=== PATIENT | female | born 2005 | race Caucasian/White ===

== ENCOUNTER 2023-06-19 06:30 | Day surgery (SDC) | payer OTHER ==
--- NOTE | 2023-06-13 14:03 | HP ---
DATE OF SURGERY: 06/19/2023 HISTORY OF PRESENT ILLNESS: The patient is a 18-year-old female who presents with complaints of enlarged tonsils. The patient has had four episodes of tonsillitis in this past year. She was actually down in [place] and had a couple episodes and had to report to a [facility] down there. The patient desires a surgical intervention for her chronic tonsillitis. PAST MEDICAL HISTORY: Depression. Tonsillitis. PAST SURGICAL HISTORY: [place] teeth. ALLERGIES: NKDA. MEDICATIONS: Celexa. Loestrin. FAMILY HISTORY: Unreported. SOCIAL HISTORY: Occasional alcohol. REVIEW OF SYSTEMS: CONSTITUTIONAL: Denies fever or chills. CHEST: Denies shortness of breath. CVS: Denies chest pain. ABDOMEN: Denies abdominal pain. PHYSICAL EXAMINATION: GENERAL: No acute distress. HEENT: She has bilaterally enlarged tonsils. CHEST: Regular rate and rhythm. CVS: Regular rate and rhythm. ABDOMEN: Soft. IMPRESSION: Chronic tonsillitis with bilaterally enlarged tonsils. PLAN: Outpatient T&A with Dr. Van Gray. As dictated by Sonia Call NP.
[2023-06-19] MEDS ORDERED: [UNRECOGNIZED DRUG - OTHER] TP ONE (06:31)
[2023-06-19 06:45] LABS: HCG URINE TEST NEGATIVE (NEGATIVE)
[2023-06-19] MEDS ORDERED: Lactated Ringers 1,000 ML IV SCH (07:00)
[2023-06-19 07:17] VITALS: RESP 18
[2023-06-19] MEDS ORDERED: SUBLIMAZE 100 MCG/2 ML ONE ×3 (07:17→11:21)
[2023-06-19] MEDS ORDERED: Xylocaine-Mpf 2% 5 Ml Vial ONE (07:17)
[2023-06-19] MEDS ORDERED: Decadron 4 MG INJ ONE (07:17)
[2023-06-19] MEDS ORDERED: Zofran 4 MG/2 ML VIAL ONE (07:17)
[2023-06-19] MEDS ORDERED: DIPRIVAN 200 MG/20 ML IV ONE (07:17)
[2023-06-19] MEDS ORDERED: Versed 2 MG/2 ML Injection ONE (07:17)
[2023-06-19] MEDS ORDERED: MEFOXIN 2 GM PREMIX** 2 GM/50 ML ML IV ONE (07:56)
[2023-06-19] MEDS ORDERED: MEFOXIN 2 GM PREMIX** 2 GM/50 ML ML IV SCH (08:00)
[2023-06-19] MEDS ORDERED: Zemuron 100 MG/10 ML ONE (08:17)
[2023-06-19] MEDS ORDERED: BRIDION 200MG/2ML IV ONE (08:17)
--- NOTE | 2023-06-19 11:23 | OP ---
SURGERY DATE/TIME: 06/19/2023 0923 PREOPERATIVE DIAGNOSIS: Chronic and recurrent tonsillitis. POSTOPERATIVE DIAGNOSIS: Chronic and recurrent tonsillitis with evidence of abscesses in both left and right tonsil. PROCEDURE: Bilateral tonsillectomy. SURGEON: Van Gray M.D. HEART SPECIALIST: Sonia Call NP. ANESTHESIA: General. COMPLICATIONS: None. CONDITION: Stable. INDICATION: The patient presents for tonsillectomy. She is 18 years old. She has had innumerous attacks. She has chronic tonsillitis at this time. She has enlarged tonsils and they are very cryptic and irregular. DESCRIPTION OF PROCEDURE: Taken to surgery. Left tonsil addressed first. Traditional gag. Tongue blade. Anterior pillar is scored onto the base of the tongue. Tonsil taken at the base of the tongue and lifted cephalad out of the fossa. Anterior and posterior pillars intact and delivered off the top edge by the uvula. Hemostasis satisfactory throughout. Hemostasis obtained with electrocautery. It was markedly necrotic in the mid portion. On the right side, it seemed to be a better to start with but on further manipulation it was acutely as rotten as the left side. It was able to be kept together. It was rolled away from the tongue away from the anterior and posterior pillars and delivered off the uvula. One suture was placed in the upper right-hand corner and the pillar had been thinned out at the top and one suture is placed there. Hemostasis satisfactory. Orofacial structures intact. Bite was intact. The patient tolerated the procedure satisfactorily. Findings discussed and instructions given to mother.
[2023-06-19 12:06] VITALS: O2SAT 98
[2023-06-19 12:28] VITALS: BP 136/72; PULSE 71; TEMP 97.9
== END 2023-06-19 12:26 | disposition home or self-care (01) ==
LOC: SDC 06:30
PROVIDERS: ATTEND Surgery
DX: J35.01 Chronic tonsillitis (principal)
CPT/HCPCS: 81025; J0694; J1100; J2250; J2405; J2704; J3010